=== PATIENT | male | born 1940 | race Caucasian/White ===

== ENCOUNTER → 2016-09-22 | Outpatient (CLI) | payer MEDICARE ==
[2016-02-06 11:50] VITALS: BP 158/77
[~2016-09-22] MED LIST: AMLO10TA2 PO; AMLO10TA4 PO; B CO1TAB8 PO; CALC-147 PO; CHOL200044 PO; CHOL500016 PO; CYAN250012 PO; DOCU-109 PO; FERR-26 PO; KRIL500C PO; LEVO150T5 PO; LEVO75TA PO; LOSA1TAB17 PO; MAGN400C PO; MILK140C PO; MILK500C PO; MULT-245 PO; MULT1TAB77 PO; OMEG-33 PO; OMEG1CAP6 PO; ONDA4TAB10 PO; OXYC-323 PO; POTASSIUM CHLO10 MEQ PO; UBID100C26 PO; UBID100T5 PO; VITA400C6 PO; vit d3; vit e
--- NOTE | 2016-09-22 15:38 | RAD ---
Ankle brachial indices. 09/22/2016 Indication: Peripheral vascular disease. Comparison study: None available Discussion: Right brachial pressure: 111 mmHg Left brachial pressure: 109 mmHg Right ankle pressure: 139 mmHg Left ankle pressure: 122 mmHg Right BRIGETTE: 1.25 Left BRIGETTE 1.10 Impression: 1. Mildly elevated BRIGETTE on the right. Findings most commonly reflects vessel hardening secondary to atherosclerotic vascular disease. 2. Normal BRIGETTE on the left.
== END | disposition home or self-care (01) ==
LOC: US 15:25
PROVIDERS: ATTEND Orthopaedic Surgery Sports Medicine
DX: I73.9 Peripheral vascular disease, unspecified (principal)
CPT/HCPCS: 93922

== ENCOUNTER → 2016-12-25 | Outpatient (CLI) | payer MEDICARE ==
[2016-02-06 11:50] VITALS: BP 158/77
[~2016-12-25] MED LIST changes: +B CO1TAB10 PO; -B CO1TAB8 PO; -LOSA1TAB17 PO; +LOSA1TAB22 PO
--- NOTE | 2016-12-25 10:13 | KCIC ---
INDICATION: Chronic low back pain and numbness in both legs. Previous surgeries. TECHNIQUE: Sagittal T1, sagittal T2, sagittal STIR, axial T1, and axial T2 sequences are provided. Comparison is from April 04, 2011. FINDINGS: There is marrow heterogeneity with mild diffuse decrease in marrow signal but no discrete worrisome marrow lesion. There are also areas of fatty replacement of the endplates, most notably at L4-L5, probably degenerative. There is no marrow edema. Vertebral body height is maintained. There is anterolisthesis at L4-L5 measuring 7 mm. There is otherwise no malalignment. There is diffuse disc desiccation. Disc height is narrowed at L4-L5. The conus medullaris is normal in signal intensity and in position. The numbering system assumes 5 lumbar type vertebral bodies. Findings by individual level are as follows: L1-L2: There is facet hypertrophy without canal or foraminal compromise. L2-L3: There is a minimal disc bulge and facet hypertrophy with mild foraminal narrowing. There is right lateral recess narrowing. L3-L4: Disc bulge and marked facet hypertrophy are noted. There is ligamentum flavum hypertrophy. There is oxul-wu-uwizzbnm canal stenosis with lateral recess narrowing. Foraminal narrowing is mild on the right and minimal on the left. L4-L5: Decompression is noted. There is endplate irregularity and facet hypertrophy. There is left lateral recess narrowing. There is mild canal stenosis although midline AP diameter of the thecal sac still measures 10 mm. There is moderate to severe bilateral foraminal narrowing. L5-S1: Minimal disc bulge and facet hypertrophy are noted without canal or foraminal compromise. IMPRESSION: Degenerative changes in the lumbar spine with canal stenosis greatest at L3-L4. Foraminal narrowing is greatest at L4-L5. Electronically signed by: Damon May MD (12/25/2016 10:10 AM) [email or web address]
== END | disposition home or self-care (01) ==
LOC: KCIC MRI 09:06
PROVIDERS: ATTEND Family Medicine
DX: M51.16 Intervertebral disc disorders with radiculopathy, lumbar region (principal); M48.061 Spinal stenosis, lumbar region without neurogenic claudication; G89.29 Other chronic pain; R20.0 Anesthesia of skin
CPT/HCPCS: 72148

== ENCOUNTER → 2017-02-02 | Outpatient (CLI) | payer MEDICARE ==
[2016-02-06 11:50] VITALS: BP 158/77
--- NOTE | 2017-02-02 08:45 | KCIC ---
LUMBAR SPINE FLEX/EXTI ONLY History: Lumbar spondylosis Comparison: 12/25/2016 MR lumbar spine exam Findings: Lateral flexion and extension views of the lumbar spine are submitted. There is grade 1 anterior spondylolisthesis at L4-5 slightly accentuated with flexion. There is multilevel lumbar facet degenerative change. There is mild to moderate degenerative disc disease L4-5. There is scattered atherosclerotic calcification of the abdominal aorta. Impression: 1. Grade 1 anterior spondylolisthesis at L4-5 is slightly accentuated with flexion. There is multilevel lumbar facet degenerative change. 2. There is degenerative disc disease L4-5. Electronically signed by: Abelino Chirinos MD (02/02/2017 8:41 AM) [email or web address]
== END | disposition home or self-care (01) ==
LOC: KCIC 07:52
PROVIDERS: ATTEND Neurological Surgery
DX: M51.16 Intervertebral disc disorders with radiculopathy, lumbar region (principal); M43.16 Spondylolisthesis, lumbar region; M47.896 Other spondylosis, lumbar region; I70.0 Atherosclerosis of aorta
CPT/HCPCS: 72100

== ENCOUNTER → 2017-02-04 | Outpatient (CLI) | payer MEDICARE ==
[2016-02-06 11:50] VITALS: BP 158/77
--- NOTE | 2017-02-04 11:18 | KCIC ---
CHEST PA LATERAL History: Cough, shortness of air, COPD, emphysema, previous smoker Comparison: 04/19/2014 Findings: There are again postsurgical changes of the left hemithorax. Somewhat round opacity in the left hilar region is stable. Pericardial cardiac silhouette is unchanged. There is no pneumothorax, dependent pleural fluid, lobar infiltrate. Deformity of left ribs is probably on a postsurgical basis as seen previously. Impression: 1. Radiographic findings are similar compared with the 2015 exam, no infiltrate. CT would be more sensitive for detection of pulmonary nodules. Electronically signed by: Abelino Chirinos MD (02/04/2017 11:15 AM) [facility]
== END | disposition home or self-care (01) ==
LOC: KCIC 10:31
PROVIDERS: ATTEND Internal Medicine Critical Care Medicine
DX: J44.9 Chronic obstructive pulmonary disease, unspecified (principal); Z87.891 Personal history of nicotine dependence
CPT/HCPCS: 71020

== ENCOUNTER → 2017-03-25 | Outpatient (CLI) | payer MEDICARE | END | disposition home or self-care (01) | LOC: ECHO 09:30 | DX: Z01.810 Encounter for preprocedural cardiovascular examination (principal); E66.9 Obesity, unspecified; I37.1 Nonrheumatic pulmonary valve insufficiency; I07.1 Rheumatic tricuspid insufficiency; I10 Essential (primary) hypertension | CPT/HCPCS: 93306 ==

== ENCOUNTER → 2017-08-03 | Outpatient (CLI) | payer MEDICARE | END | disposition home or self-care (01) | LOC: KCIC US 07:40 | DX: K76.0 Fatty (change of) liver, not elsewhere classified (principal); K80.20 Calculus of gallbladder without cholecystitis without obstruction; R18.8 Other ascites; R16.2 Hepatomegaly with splenomegaly, not elsewhere classified | CPT/HCPCS: 76700 ==

== ENCOUNTER → 2017-08-13 | Outpatient (CLI) | payer MEDICARE | END | disposition home or self-care (01) | LOC: US 10:30 | DX: R18.8 Other ascites (principal) | CPT/HCPCS: 93975 ==

== ENCOUNTER 2017-08-14 09:59 | Outpatient (CLI) | payer MEDICARE ==
[2017-08-14 10:30] LABS: ADD MAN DIFF? NO
[2017-08-14 10:48] LABS: ANION GAP 10 (6-14); BLOOD UREA NITROGEN 7 mg/dL (8-26); CALCIUM 9.5 mg/dL (8.5-10.1); CARBON DIOXIDE 29 mmol/L (21-32); CHLORIDE 102 mmol/L (98-107); CREATININE 0.8 mg/dL (0.7-1.3); GFR 94.2; GLUCOSE 117 mg/dL (70-99); POTASSIUM 3.7 mmol/L (3.5-5.1); SODIUM 141 mmol/L (136-145)
[2017-08-14 10:49] LABS: BASO # 0.1 x10^3/uL (0.0-0.2); BASO % 1 % (0-3); EOS # 0.3 x10^3/uL (0.0-0.7); EOS % 3 % (0-3); HEMATOCRIT 43.7 % (39.0-53.0); HEMOGLOBIN 15.1 g/dL (13.0-17.5); LYMPH # 1.7 x10^3/uL (1.0-4.8); LYMPH % 19 % (24-48); MEAN CORPUSCULAR HEMOGLOBIN 36 pg (25-35); MEAN CORPUSCULAR HGB CONC 35 g/dL (31-37); MEAN CORPUSCULAR VOLUME 104 fL (79-100); MONO # 1.1 x10^3/uL (0.0-1.1); MONO % 12 % (0-9); NEUT % 66 % (31-73); PLATELET COUNT 189 x10^3/uL (140-400); RED BLOOD COUNT 4.21 x10^6/uL (4.30-5.70); RED CELL DISTRIBUTION WIDTH 13.8 % (11.5-14.5); WHITE BLOOD COUNT 9.1 x10^3/uL (4.0-11.0)
[2017-08-14 10:51] LABS: INR 1.2 (0.8-1.1); PROTHROMBIN TIME PATIENT 14.9 SEC (11.7-14.0)
[2017-08-14] MEDS ORDERED: LIDOCAINE WITH 8.4% SOD BICARB 3 ML DISP.SYRIN. (11:18)
[2017-08-14] MEDS: LIDOCAINE WITH 8.4% SOD BICARB 3 ML DISP.SYRIN. INJ (12:14)
[2017-08-14 15:19] LABS: BF CLARITY CLEAR; BF COLOR YELLOW; BF MON % 94 %; BF PMN % 2 %; BF RBC COUNT 625 /cmm; BF SOURCE ASCITES; BF WBC COUNT 550 /cmm
[2017-08-14 15:20] LABS: BF OTHER % 4 %
[2017-08-16 13:13] LABS: BODY FLUID ALBUMIN 2.1 g/dL (.)
== END 2017-08-14 13:25 | disposition home or self-care (01) ==
LOC: INTRAD 09:59
DX: R18.8 Other ascites (principal); E78.00 Pure hypercholesterolemia, unspecified; I10 Essential (primary) hypertension; J44.9 Chronic obstructive pulmonary disease, unspecified; G47.33 Obstructive sleep apnea (adult) (pediatric); E66.9 Obesity, unspecified; Z68.41 Body mass index [BMI] 40.0-44.9, adult; E03.9 Hypothyroidism, unspecified; M06.9 Rheumatoid arthritis, unspecified; Z88.5 Allergy status to narcotic agent; Z98.42 Cataract extraction status, left eye; Z98.41 Cataract extraction status, right eye; Z96.1 Presence of intraocular lens; Z98.890 Other specified postprocedural states; Z86.010 Personal history of colon polyps; Z90.49 Acquired absence of other specified parts of digestive tract; Z85.46 Personal history of malignant neoplasm of prostate; Z98.52 Vasectomy status; N40.0 Benign prostatic hyperplasia without lower urinary tract symptoms; M19.90 Unspecified osteoarthritis, unspecified site; Z96.641 Presence of right artificial hip joint; Z87.891 Personal history of nicotine dependence
CPT/HCPCS: 36415; 49083; 80048; 82042; 85025; 85610; 87071; 87075; 87205; 88112; 88305; 89050

== ENCOUNTER 2017-09-03 07:47 | Outpatient (CLI) | payer MEDICARE ==
[2017-09-03 08:14] LABS: ADD MAN DIFF? NO
[2017-09-03 08:24] LABS: BASO # 0.1 x10^3/uL (0.0-0.2); BASO % 1 % (0-3); EOS # 0.4 x10^3/uL (0.0-0.7); EOS % 5 % (0-3); HEMATOCRIT 41.1 % (39.0-53.0); HEMOGLOBIN 14.3 g/dL (13.0-17.5); LYMPH # 1.3 x10^3/uL (1.0-4.8); LYMPH % 15 % (24-48); MEAN CORPUSCULAR HEMOGLOBIN 35 pg (25-35); MEAN CORPUSCULAR HGB CONC 35 g/dL (31-37); MEAN CORPUSCULAR VOLUME 101 fL (79-100); MONO # 1.1 x10^3/uL (0.0-1.1); MONO % 12 % (0-9); NEUT # 6.2 x10^3uL (1.8-7.7); NEUT % 68 % (31-73); PLATELET COUNT 180 x10^3/uL (140-400); RED BLOOD COUNT 4.06 x10^6/uL (4.30-5.70); RED CELL DISTRIBUTION WIDTH 13.6 % (11.5-14.5); WHITE BLOOD COUNT 9.1 x10^3/uL (4.0-11.0)
[2017-09-03 08:36] LABS: INR 1.2 (0.8-1.1); PROTHROMBIN TIME PATIENT 14.9 SEC (11.7-14.0)
[2017-09-03] MEDS ORDERED: LIDOCAINE WITH 8.4% SOD BICARB 3 ML DISP.SYRIN. ×2 (08:42→09:42)
[2017-09-03] MEDS ORDERED: GELATIN SPONGE SIZE 12-7MM SPONGE. (08:43)
[2017-09-03] MEDS ORDERED: IODIXANOL 320MG/ML 50ML VIAL. (09:43)
[2017-09-03] MEDS ORDERED: MIDAZOLAM HCL/PF 2 MG/2 ML VIAL. (09:44)
[2017-09-03] MEDS ORDERED: fentaNYL PF VIAL 100 MCG/2 ML VIAL (09:44)
[2017-09-03] MEDS: IODIXANOL 320MG/ML 50ML VIAL. IV (10:33)
[2017-09-03] MEDS: LIDOCAINE WITH 8.4% SOD BICARB 3 ML DISP.SYRIN. IJ (10:34)
[2017-09-03] MEDS: MIDAZOLAM HCL/PF 2 MG/2 ML VIAL. IV (10:34)
[2017-09-03] MEDS: fentaNYL PF VIAL 100 MCG/2 ML VIAL IV (10:34)
== END 2017-09-03 13:02 | disposition home or self-care (01) ==
LOC: INTRAD 07:47
DX: K70.31 Alcoholic cirrhosis of liver with ascites (principal); J44.9 Chronic obstructive pulmonary disease, unspecified; E78.00 Pure hypercholesterolemia, unspecified; G47.30 Sleep apnea, unspecified; Z72.89 Other problems related to lifestyle; Z90.49 Acquired absence of other specified parts of digestive tract; Z87.891 Personal history of nicotine dependence; Z98.42 Cataract extraction status, left eye; Z98.41 Cataract extraction status, right eye; Z96.1 Presence of intraocular lens; Z98.890 Other specified postprocedural states; Z79.01 Long term (current) use of anticoagulants; I10 Essential (primary) hypertension; Z86.010 Personal history of colon polyps; Z94.4 Liver transplant status; E66.9 Obesity, unspecified; Z68.35 Body mass index [BMI] 35.0-35.9, adult; Z85.46 Personal history of malignant neoplasm of prostate; Z98.52 Vasectomy status; N40.0 Benign prostatic hyperplasia without lower urinary tract symptoms; M19.90 Unspecified osteoarthritis, unspecified site; M06.9 Rheumatoid arthritis, unspecified; Z96.641 Presence of right artificial hip joint; E03.9 Hypothyroidism, unspecified; Z88.5 Allergy status to narcotic agent
CPT/HCPCS: 36011; 36415; 36596; 37200; 75889; 75970; 76937; 85025; 85610; 88307; 88313; 99152; 99153; C1769; C1887; C1892; C1894; J1644; J2250; J3010

== ENCOUNTER 2017-11-25 06:57 | Outpatient (CLI) | payer MEDICARE ==
[~2017-11-25] VITALS: Ht 172.7 cm; Wt 103.9 kg
[~2017-11-25 06:57] MED LIST changes: -AMLO10TA2 PO; +AMLO10TA6 PO; -FERR-26 PO; +FERR325T14 PO; +POTA10TA12 PO; -POTASSIUM CHLO10 MEQ PO; +SPIR100T4 PO
[2017-11-25 07:30] LABS: BASO # 0.1 x10^3/uL (0.0-0.2); BASO % 1 % (0-3); EOS # 0.2 x10^3/uL (0.0-0.7); EOS % 3 % (0-3); HEMATOCRIT 40.9 % (39.0-53.0); HEMOGLOBIN 14.1 g/dL (13.0-17.5); LYMPH # 1.3 x10^3/uL (1.0-4.8); LYMPH % 15 % (24-48); MEAN CORPUSCULAR HEMOGLOBIN 34 pg (25-35); MEAN CORPUSCULAR HGB CONC 34 g/dL (31-37); MEAN CORPUSCULAR VOLUME 98 fL (79-100); MONO % 12 % (0-9); NEUT # 5.9 x10^3uL (1.8-7.7); NEUT % 69 % (31-73); PLATELET COUNT 167 x10^3/uL (140-400); RED BLOOD COUNT 4.19 x10^6/uL (4.30-5.70); WHITE BLOOD COUNT 8.5 x10^3/uL (4.0-11.0)
[2017-11-25] MEDS ORDERED: MILK500C PO (07:33)
[2017-11-25 07:35] VITALS: BP 105/67
[2017-11-25 07:42] LABS: PROTHROMBIN TIME PATIENT 13.9 SEC (11.7-14.0)
--- NOTE | 2017-11-26 08:34 | RAD ---
Limited abdominal ultrasound 11/25/2017 Discussion: Limited abdominal ultrasound was performed in preparation for possible paracentesis. Patient has been experiencing significant distention. Four-quadrant ultrasound demonstrates no significant ascites however. Paracentesis was not performed. Impression: No significant ascites is identified
== END 2017-11-25 10:14 | disposition home or self-care (01) ==
LOC: INTRAD 06:57
PROVIDERS: ATTEND Internal Medicine Gastroenterology
DX: R14.0 Abdominal distension (gaseous) (principal); Z88.5 Allergy status to narcotic agent; Z79.01 Long term (current) use of anticoagulants
CPT/HCPCS: 36415; 76705; 85025; 85610; 85730

== ENCOUNTER 2018-05-04 07:03 | Outpatient (CLI) | payer MEDICARE ==
[~2018-05-04] VITALS: Ht 172.7 cm; Wt 103.0 kg
[~2018-05-04 07:03] MED LIST changes: -AMLO10TA6 PO; +AMLO10TA8 PO; -OXYC-323 PO; +OXYC1TAB15 PO
[2018-05-04 07:48] VITALS: BP 114/60
[2018-05-04 07:52] LABS: BASO # 0.1 x10^3/uL (0.0-0.2); BASO % 1 % (0-3); EOS # 0.3 x10^3/uL (0.0-0.7); EOS % 3 % (0-3); HEMATOCRIT 42.6 % (39.0-53.0); HEMOGLOBIN 14.2 g/dL (13.0-17.5); LYMPH % 21 % (24-48); MEAN CORPUSCULAR HEMOGLOBIN 33 pg (25-35); MEAN CORPUSCULAR HGB CONC 33 g/dL (31-37); MEAN CORPUSCULAR VOLUME 97 fL (79-100); MONO % 10 % (0-9); NEUT # 6.3 x10^3uL (1.8-7.7); NEUT % 65 % (31-73); PLATELET COUNT 190 x10^3/uL (140-400); RED BLOOD COUNT 4.38 x10^6/uL (4.30-5.70); RED CELL DISTRIBUTION WIDTH 13.8 % (11.5-14.5); WHITE BLOOD COUNT 9.7 x10^3/uL (4.0-11.0)
[2018-05-04 08:18] LABS: PROTHROMBIN TIME PATIENT 14.4 SEC (11.7-14.0)
--- NOTE | 2018-05-04 11:37 | NUR ---
Discharge Note: CHRIS DEWITT Discharge instructions and discharge home medications reviewed with Patient and a copy given. All questions have been answered and understanding verbalized. The following instructions and handouts were given: pt discharged to home via ambulation. Pt did not need a paracentesis due to no fluid in the abdomen. Discontinued lines and drains: Pt did not have an iv inserted upon admission. Patient discharged to home withs self care via ambulation.
--- NOTE | 2018-05-04 12:18 | RAD ---
Limited abdominal ultrasound for ascites, planning for paracentesis. Technique an findings: Real-time grayscale imaging of the abdomen was performed in the bilateral lower quadrants as well as right upper quadrant. No free ascites or loculated fluid collections are identified. Impression: 1. No abdominal ascites. The patient's planned paracentesis was canceled.
== END 2018-05-04 11:40 | disposition home or self-care (01) ==
LOC: INTRAD 07:03
PROVIDERS: ATTEND Internal Medicine Gastroenterology
DX: Z03.89 Encounter for observation for other suspected diseases and conditions ruled out (principal); Z88.5 Allergy status to narcotic agent; Z79.01 Long term (current) use of anticoagulants; Z79.899 Other long term (current) drug therapy
CPT/HCPCS: 36415; 76705; 85025; 85610; 85730

== ENCOUNTER → 2018-06-24 | Outpatient (CLI) | payer MEDICARE ==
--- NOTE | 2018-06-24 17:03 | KCIC ---
Lumbar spine radiograph June 24, 2018 INDICATION: Spinal stenosis with low back pain. COMPARISON: MR lumbar spine December 25, 2016, lumbar spine radiograph February 02, 2017 TECHNIQUE: 5 views of the lumbar spine are provided. FINDINGS: There is levoconvex scoliosis of the lumbar spine with apex levocurvature at L4-L5. There are 5 nonrib-bearing lumbar type vertebral bodies. There is grade 1 anterolisthesis of L4 on L5. There is mild disc height loss at L4-L5 and L5-S1. Advanced facet arthropathies on the lower lumbar spine. Mild anterior marginal osteophytosis is present. There is moderate osseous foraminal stenosis at L4-L5 and L5-S1. Atherosclerotic changes of the abdominal aorta are present. Intra-abdominal aortic aneurysm is identified measuring 3.4 cm. Degenerative changes of the sacroiliac joints are present. Severe facet arthropathy is identified at the right at L5-S1. Right hip hardware is partially profiled. Surgical clips are identified in the left upper quadrant. IMPRESSION: There is levoconvex scoliosis of the lumbar spine with severe degenerative facet arthropathy lower lumbar spine and grade 1 anterolisthesis of L4 on L5. Findings are relatively similar to the prior radiographs from 2017. Electronically signed by: Mayra Haque MD (06/24/2018 5:00 PM) [id number]
== END | disposition home or self-care (01) ==
LOC: KCIC 12:39
PROVIDERS: ATTEND Family Medicine
DX: M43.16 Spondylolisthesis, lumbar region (principal); M48.07 Spinal stenosis, lumbosacral region; M47.818 Spondylosis without myelopathy or radiculopathy, sacral and sacrococcygeal region; M41.86 Other forms of scoliosis, lumbar region; M12.88 Other specific arthropathies, not elsewhere classified, other specified site; M25.78 Osteophyte, vertebrae; I71.4 Abdominal aortic aneurysm, without rupture
CPT/HCPCS: 72110

== ENCOUNTER → 2018-07-06 | Outpatient (CLI) | payer MEDICARE ==
--- NOTE | 2018-07-06 17:53 | KCIC ---
MRI of the lumbar spine without contrast 07/06/2018 CLINICAL HISTORY: Chronic low back pain which radiates down both legs. TECHNIQUE: Unenhanced T1-weighted and T2-weighted sagittal and axial and inversion recovery sagittal images of the lumbar spine were obtained. FINDINGS: Comparison study is dated 12/25/2016. Mild S-shaped curvature of the thoracolumbar spine is seen. Degenerative signal changes are seen involving all of the disks of the lumbar spine. Degenerative signal changes are seen within the marrow surrounding these discs. Loss of height of the L4-5 disc is noted. The conus medullaris is normal morphology, position, and signal characteristics. At the L1-2 disc space there is a minimal generalized disc bulge. Degenerative changes are seen involving the facet joints bilaterally. There is mild ligament flavum hypertrophy bilaterally. These findings do not result in significant central spinal canal or neural foraminal stenosis. At the L2-3 disc space there is a mild generalized disc bulge. This is eccentric to the left. Degenerative changes are seen involving the facet joints bilaterally. There is mild to moderate ligamentum flavum hypertrophy bilaterally. There are small facet joint effusions. These findings when combined result in mild to moderate central spinal canal stenosis. Mild left neural foraminal stenosis is seen. The right neural foramen is patent. At the L3-4 disc space there is a moderate generalized disc bulge. Degenerative changes are seen involving the facet joints bilaterally. There is moderate ligamentum flavum hypertrophy bilaterally. There is a small left facet joint effusion. These findings when combined result in moderate to severe central spinal canal stenosis. No neural foraminal stenosis is seen. At the L4-5 disc space there is a moderate generalized disc bulge. The patient appears to be post laminectomy. Degenerative changes are seen involving the facet joints bilaterally. These findings do not result in significant central spinal canal stenosis. Mild to moderate bilateral neural foraminal stenosis is seen. The L5-S1 disc space there is a mild generalized disc bulge. Degenerative changes are seen involving the facet joints bilaterally. These findings do not result in significant central spinal canal or neural foraminal stenosis. IMPRESSION: 1. Post laminectomy at L4-5. 2. The changes of degenerative disc disease are seen throughout the lumbar spine. These findings result in mild to moderate central spinal canal stenosis at L2-3 and moderate to severe central spinal canal stenosis at L3-4. Mild left neural foraminal stenosis is seen at L2-3. Mild to moderate bilateral neural foraminal stenosis is seen at L4-5. Electronically signed by: Eirck Lerner MD (07/06/2018 5:51 PM) [facility]
== END | disposition home or self-care (01) ==
LOC: KCIC MRI 15:45
PROVIDERS: ATTEND Family Medicine
DX: M51.16 Intervertebral disc disorders with radiculopathy, lumbar region (principal); M48.061 Spinal stenosis, lumbar region without neurogenic claudication; M47.26 Other spondylosis with radiculopathy, lumbar region; M47.818 Spondylosis without myelopathy or radiculopathy, sacral and sacrococcygeal region; M53.3 Sacrococcygeal disorders, not elsewhere classified; M25.48 Effusion, other site; Z98.890 Other specified postprocedural states
CPT/HCPCS: 72148

== ENCOUNTER → 2018-07-22 | Outpatient (CLI) | payer MEDICARE ==
--- NOTE | 2018-07-22 15:38 | CARD ---
MR#: [id number] Date of Study: 07/22/2018 Ordering Physician: AMRIT GARCIA, Referring Physician: AMRIT GARCIA, Tech: Mary Calderon APPROVED REPORT EXAM: Two-dimensional and M-mode echocardiogram with Doppler and color Doppler. Other Information Quality : AverageHR: 81bpm INDICATION COPD Pre-Op Murmur 2D DIMENSIONS RVDd3.3 (2.9-3.5cm)Left Atrium(2D)4.5 (1.6-4.0cm) IVSd1.2 (0.7-1.1cm)Aortic Root(2D)3.7 (2.0-3.7cm) LVDd5.8 (3.9-5.9cm)LVOT Diameter2.0 (1.8-2.4cm) PWd1.2 (0.7-1.1cm)LVDs4.2 (2.5-4.0cm) FS (%) 27.5 %SV87.7 ml LVEF(%)52.7 (>50%) Aortic Valve AoV Peak Alejandro.149.9cm/sAoV VTI25.1cm AO Peak GR.9.0mmHgLVOT Peak Alejandro.112.2cm/s LVOT VTI 21.33cmAO Mean GR.5mmHg KENDELL (VMAX)1.03sq7VWF (VTI)2.66cm2 Mitral Valve MV E Jgcwexhi93.9cm/sMV DECEL FNWA543ih MV A Gmhhpjoq800.0cm/sMV CZY893lv E/A Ratio0.6MVA (PHT)2.18cm2 TDI E/Lateral E'10.6E/Medial E'13.4 Pulmonary Valve PV Peak Uxydsvcy596.0cm/sPV Peak Grad.5mmHg Tricuspid Valve TR P. Eomlisze410zy/sRAP IOOFQWUG5ssSb TR Peak Gr.78xzMrJYVS68snDb Pulmonary Vein S1 Fzkxtsxu32.6cm/sD2 Rnuqgspw50.4cm/s PVa [id number] LEFT VENTRICLE The left ventricle is normal size. There is mild concentric left ventricular hypertrophy. The left ve ntricular systolic function is normal. The Ejection Fraction is 55-60%. There is normal LV segmental wall motion. Transmitral Doppler flow pattern is Grade I-abnormal relaxation pattern. RIGHT VENTRICLE The right ventricle is normal size. There is normal right ventricular wall thickness. The right ventr icular systolic function is normal. ATRIA The left atrium is mildly dilated. The right atrium size is normal. The interatrial septum is intact with no evidence for an atrial septal defect or patent foramen ovale as noted on 2-D or Doppler imagi ng. AORTIC VALVE The aortic valve is calcified but opens well. Doppler and Color Flow revealed no significant aortic r egurgitation. There is no significant aortic valvular stenosis. MITRAL VALVE The mitral valve is normal in structure and function. There is no evidence of mitral valve prolapse. There is no mitral valve stenosis. Doppler and Color Flow revealed no mitral valve regurgitation note d. TRICUSPID VALVE The tricuspid valve is normal in structure and function. Doppler and Color Flow revealed no tricuspid valve regurgitation noted. There is no tricuspid valve stenosis. PULMONIC VALVE The pulmonic valve is not well visualized. Doppler and Color Flow revealed no pulmonic valvular regur gitation. GREAT VESSELS The aortic root is normal in size. The IVC is normal in size and collapses >50% with inspiration. PERICARDIAL EFFUSION There is no evidence of significant pericardial effusion. Critical Notification Critical Value: No <Conclusion> The left ventricular systolic function is normal. The Ejection Fraction is 55-60%. There is normal LV segmental wall motion. Transmitral Doppler flow pattern is Grade I-abnormal relaxation pattern. No significant valvular stenosis or regurgitation. There is no evidence of significant pericardial effusion. Signed by : José Antonio Mejia, Electronically Approved : 07/22/2018 15:38:31
== END | disposition home or self-care (01) ==
LOC: ECHO 13:03
PROVIDERS: ATTEND Internal Medicine Cardiovascular Disease
DX: I35.8 Other nonrheumatic aortic valve disorders (principal); I11.9 Hypertensive heart disease without heart failure; J44.9 Chronic obstructive pulmonary disease, unspecified
CPT/HCPCS: 93306

== ENCOUNTER 2018-07-26 07:09 | Outpatient (CLI) | payer MEDICARE ==
[~2018-07-26] VITALS: Ht 172.7 cm; Wt 113.4 kg
[2018-07-26 07:46] VITALS: BP 154/101
[2018-07-26 08:02] LABS: BASO # 0.1 x10^3/uL (0.0-0.2); BASO % 1 % (0-3); EOS # 0.3 x10^3/uL (0.0-0.7); EOS % 3 % (0-3); HEMOGLOBIN 13.9 g/dL (13.0-17.5); LYMPH # 1.8 x10^3/uL (1.0-4.8); LYMPH % 23 % (24-48); MEAN CORPUSCULAR HEMOGLOBIN 32 pg (25-35); MEAN CORPUSCULAR HGB CONC 33 g/dL (31-37); MEAN CORPUSCULAR VOLUME 98 fL (79-100); MONO # 1.2 x10^3/uL (0.0-1.1); MONO % 14 % (0-9); NEUT # 4.7 x10^3uL (1.8-7.7); NEUT % 59 % (31-73); PLATELET COUNT 153 x10^3/uL (140-400); RED BLOOD COUNT 4.28 x10^6/uL (4.30-5.70); RED CELL DISTRIBUTION WIDTH 13.9 % (11.5-14.5); WHITE BLOOD COUNT 8.1 x10^3/uL (4.0-11.0)
[2018-07-26 08:16] LABS: PROTHROMBIN TIME PATIENT 13.6 SEC (11.7-14.0)
--- NOTE | 2018-07-26 08:50 | NUR ---
Patient did not have any fluid to drain from abdomen. No procedure done, vitals stable.
--- NOTE | 2018-07-28 07:57 | RAD ---
Limited abdominal ultrasound for ascites, planning for paracentesis. 07/27/2018 Technique an findings: Real-time grayscale imaging of the abdomen was performed in the bilateral lower quadrants as well as right upper quadrant. No free ascites or loculated fluid collections are identified. Impression: No abdominal ascites. The patient's planned paracentesis was canceled.
== END 2018-07-26 09:00 | disposition home or self-care (01) ==
LOC: INTRAD 07:09
PROVIDERS: ATTEND Internal Medicine Gastroenterology
DX: R18.8 Other ascites (principal); Z53.9 Procedure and treatment not carried out, unspecified reason
CPT/HCPCS: 36415; 76705; 85025; 85610; 85730

== ENCOUNTER → 2018-07-28 | Outpatient (CLI) | payer MEDICARE ==
[2018-07-26 07:46] VITALS: BP 154/101
[~2018-07-28] MED LIST changes: +CONTRAST GIVEN. MC PRN; +IOHEXOL 240 MG/ML 50ML VIAL. PO ONE; +IOHEXOL 300 MG/ML 100ML VIAL. IV ONE
[2018-07-28 08:56] LABS: GFR 72.6
--- NOTE | 2018-07-28 11:06 | RAD ---
CT of the chest, abdomen and pelvis with contrast, 07/28/2018: HISTORY: Shortness of breath, hepatic cirrhosis Multidetector CT imaging was performed following oral and IV administration of contrast. There are rib deformities on the left which are presumably postsurgical with mild underlying pleural-parenchymal scarring laterally. There is mild volume loss on the left compatible with a history of a lobectomy. No pulmonary mass or significant consolidation is seen. There is no evidence of pleural fluid. There is moderate calcific plaquing of the thoracic aorta. The ascending aorta is dilated measuring 4.7 cm in width on the coronal images. The aortic arch and descending thoracic aorta are of normal caliber. Moderate scattered coronary artery calcifications are present. The heart is enlarged. There is a small density along the posterior aspect of the left hilum adjacent to the descending thoracic aorta with associated surgical clips. On the coronal images this density measures approximately 2.5 x 1.3 cm. It may represent scarring, although residual tumor or adenopathy cannot be excluded. There is no other evidence of mediastinal adenopathy. No hepatic mass or bile duct dilatation is seen. There is slight hepatic contour irregularity. There are gallstones within a collapsed gallbladder. The pancreas is unremarkable. The spleen is at the upper limits of normal in size measuring 13.6 cm in craniocaudad extent. There is mild bilateral renal cortical scarring. Calcifications centrally in both kidneys are probably vascular. The adrenal glands are unremarkable. There is moderate calcific plaquing of the abdominal aorta and its branches. There is slight dilatation of the infrarenal abdominal aorta which measures 3 cm. No abdominal or pelvic adenopathy is seen. Artifacts arising from a right hip prosthesis degrade image quality in the lower pelvis. The prostate gland is enlarged measuring 5.2 cm in width. A few scattered colonic diverticula are noted. No paracolonic inflammatory process is seen. The bowel loops are not dilated. No free fluid is evident in the abdomen or pelvis. Moderate multilevel hypertrophic degenerative changes are seen throughout the spine. IMPRESSION: 1. Status post partial left pneumonectomy. 2. Small density at the left hilum which may represent postsurgical scarring, although recurrent tumor or mild adenopathy cannot be excluded. 3. Aortic atherosclerosis with mild dilatation of the ascending aorta. 4. Coronary artery calcifications. 5. Mild dilatation of the infrarenal abdominal aorta. 6. Cholelithiasis. 7. Mild prostatic enlargement. 8. Additional chronic findings as described above. PQRS Compliance Statement: One or more of the following individualized dose reduction techniques were utilized for this examination: 1. Automated exposure control 2. Adjustment of the mA and/or kV according to patient size 3. Use of iterative reconstruction technique Electronically signed by: Byron Rock MD (07/28/2018 11:03 AM) [facility]
== END | disposition home or self-care (01) ==
LOC: CT 08:18
PROVIDERS: ATTEND Internal Medicine Gastroenterology
DX: I70.0 Atherosclerosis of aorta (principal); I25.10 Atherosclerotic heart disease of native coronary artery without angina pectoris; I11.9 Hypertensive heart disease without heart failure; K80.20 Calculus of gallbladder without cholecystitis without obstruction; N28.89 Other specified disorders of kidney and ureter; N40.0 Benign prostatic hyperplasia without lower urinary tract symptoms; K57.30 Diverticulosis of large intestine without perforation or abscess without bleeding; M95.4 Acquired deformity of chest and rib; Z98.890 Other specified postprocedural states; Z87.891 Personal history of nicotine dependence
CPT/HCPCS: 36415; 71260; 74177; 82565; 84520; Q9966; Q9967